=== PATIENT | female | born 1955 | race Caucasian/White ===

== ENCOUNTER 2021-02-14 09:44 | Day surgery (SDC) | payer MEDICARE, OTHER ==
[~2021-02-14] VITALS: Ht 162.6 cm; Wt 84.8 kg
--- NOTE | ~2021-02-14 | OP ---
PATIENT NAME: PROSPER DURAND MEDICAL RECORD: [id number] :51 LOCATION:D.OPS ADMISSION DATE: SURGEON: BRYN WILLIS DATE OF OPERATION: 02/14/2021 SURGEON: Bryn Saleh DPM. PREOPERATIVE DIAGNOSIS: Neuroma, second intermetatarsal space, right foot. POSTOPERATIVE DIAGNOSES: Neuroma, second intermetatarsal space, right foot. PROCEDURE: Excision of neuroma, second intermetatarsal space, right foot. ANESTHESIA: Local with monitored anesthesia care. HEMOSTASIS: Pneumatic ankle tourniquet inflated to 250 mmHg. MATERIALS: 3-0 Vicryl and 4-0 nylon. INJECTABLES: 10 cc of 0.25% Marcaine plain and 1.0% lidocaine plain. The patient has a longstanding history of pain associated with the right second intermetatarsal space. She has not improved with conservative modalities. She is here today for surgical excision of this chronically painful lesion. We again discussed the post-procedure risks and benefits were reviewed. Complications were discussed. All questions were answered. She was appropriately consented for the above procedure. The patient was brought into the operating room and placed on the operating table in supine position. A timeout was called by Dr. Willis to identify the patient, the surgical site, and the surgery to be performed. Once appropriate anesthesia was obtained, the foot was prepped and draped in the usual aseptic manner. The pneumatic ankle tourniquet was inflated to 250 mmHg around the well-padded right ankle. Attention was directed to the dorsal aspect of the second intermetatarsal space of the right foot where a 3-cm linear incision was made. This incision was carried deep through soft tissue with care being taken to retract all vital neurovascular structures. All bleeders were cauterized along the way. The deep transverse intermetatarsal ligament was then identified and sharply transected. The neuroma was then noted to reside here. The proximal aspect of the nerve was then dissected as far proximally as possible and sharply transected with a 15 blade. The digital branches were then tracked as far distally into each digit and they were also sharply transected. The neuroma was then removed from the field and sent to pathology. The surgical site was then investigated for any remaining pathological tissue and none was noted. The surgical site was then irrigated with normal sterile saline via bulb syringe. The subq was then reapproximated and coapted using 3-0 Vicryl. The skin was then reapproximated and coapted with 4-0 nylon. A dressing consisting of Xeroform, 4 x 4's, Kerlix, and an Polo bandage was applied to the right foot. The pneumatic ankle tourniquet was deflated and capillary refill time was immediate to all digits of the right foot. OPERATIVE REPORT [id number] PROSPER DURAND The patient was discharged home with instructions to ice and elevate the right foot. She was provided with a prescription for [place] 5/325, Phenergan 25 mg, and ibuprofen 800 mg. She has my cell phone number for any after hour difficulties and there were no complications with this procedure. TRANSINT:[id number] Voice Confirmation ID: [id number] DOCUMENT ID: [id number] BRYN WILLIS CC: [id number] DICTATION DATE: 02/14/21 1439 IT INFRASTRUCTURE CONSULTANT: 02/14/21 1807 [facility] 02/14/[address] [id number]
[~2021-02-14 09:44] MED LIST: CELEXA20 MG PO; PROTONIX40 MG PO
[2021-02-14 10:05] LABS: BASOPHILS 0.3 % (0-2); EOSINOPHILS 4.4 % (0-7); HEMOGLOBIN 13.9 g/dL (12-16); IMMATURE GRANULOCYTES 0.2 % (0-5); LYMPHOCYTE ABS# 1.61 10x3/uL (1.18-3.74); LYMPHOCYTES 26.1 % (15-50); MCH 31.4 pg (26.0-34.0); MCHC 33.1 g/dL (31.0-37.0); MCV 94.8 fL (80.0-100.0); MONOCYTES 6.5 % (2-11); NEUTROPHIL ABS# 3.87 10x3/uL (1.56-6.13); NEUTROPHILS 62.5 % (40-80); PLATELET COUNT 255 10x3/uL (130-400); RBC 4.43 10x6/uL (4.00-5.40); RDW 12.8 % (11.5-14.5); WBC 6.2 10x3/uL (4.8-10.8)
[2021-02-14 10:13] LABS: ANION GAP 10.8 mmol/L (8-16); CALCIUM 8.5 mg/dL (8.5-10.1); CARBON DIOXIDE 28.4 mmol/L (21.0-32.0); CREATININE - SERUM 1.1 mg/dL (0.6-1.3); POTASSIUM - SERUM 4.2 mmol/L (3.5-5.1)
[2021-02-14 11:21] VITALS: BP 106/57; Ht 162.6 cm; Wt 84.8 kg
--- NOTE | 2021-02-14 15:26 | NUR ---
1414 BNC DECREASED TO 1L/MIN 1430 PT KEEPING OXYGEN SATURATION AT 97%. BNC DC'D. 1445 DC'D IV. CATHETER TIP INTACT. NO BLEEDING AT SITE AFTER HOLDING PRESSURE. COBAN DRESSING APPLIED. REVIEWED DISCHARGE INSTRUCTIONS WITH PT AND HER . BOTH VOICE UNDERSTANDING OF THESE INSTRUCTIONS.
== END 2021-02-14 14:57 | disposition home or self-care (01) ==
LOC: D.OPS 09:44
PROVIDERS: Anesthesiology; ATTEND Podiatrist
DX: G57.61 Lesion of plantar nerve, right lower limb (principal)